=== PATIENT | female | born 1995 | race African-American/Black ===

== ENCOUNTER 2017-01-17 00:06 | Emergency (ER) | payer MEDICAID ==
[~2017-01-17] VITALS: Ht 165.1 cm; Wt 75.0 kg
[~2017-01-17 00:06] MED LIST: AUGM875T PO; IBUP800T23 PO; OFLO1SOL LEFT EAR; VENTAER INH
[2017-01-17 00:09] VITALS: BP 115/70; PULSE 105; RESP 16; TEMP 98.1; O2SAT 100
[2017-01-17] MEDS ORDERED: ONDANSETRON HCL 4 MG/2 ML VIAL IV PUSH ONE (01:30)
[2017-01-17 01:38] VITALS: BP 114/83; PULSE 95; RESP 17; O2SAT 98
[2017-01-17] MEDS ORDERED: SODIUM CHLOR 0.9% 1000 ML INJ 1,000 ML IV ONE (01:49)
--- NOTE | 2017-01-17 01:53 | PD ---
HPI Chief Complaint: GI Complaint Time Seen by Provider: 01:49 Travel History International Travel<30 days: No Contact w/Intl Traveler<30days: No Traveled to known affect area: No History of Present Illness HPI 22 year-old female presents to the emergency department by private transportation for complaint of several hours of nausea vomiting diarrhea and intermittent abdominal cramping. Patient states daughter has similar symptoms and she also thinks she may have consumed some poorly cooked macaroni and cheese. Patient states she ate around 4 PM and symptoms began around 6 or 7 PM. No hematemesis no coffee-ground emesis no melena hematochezia. No recent fever or chills. Patient denies any abdominal pain at this time. Patient denies other concerns or complaints. Current pain is 0/10 intensity PFSH Past Medical History Narrative Medical Asthma, dermatitis, ovarian cysts, child with seizure; no surgery; 3 para 3 AB 0; no tobacco use; nursing notes reviewed Asthma: Yes Diminished Hearing: No Headaches: Yes Immunizations Current: No Seizures: Yes ( CHILD) Tetanus Vaccination: < 5 Years Influenza Vaccination: No ?: Unknown Menopausal: No : 4 Para: 4 Ovarian Cysts: Yes Past Surgical History Surgical History: No Previous Surgery Social History Alcohol Use: No Tobacco Use: No Substance Use: No Allergies-Medications (Allergen,Severity, Reaction): Coded Allergies: Peanut Allergy (Verified Allergy, Severe, 01/17/17) Reported Meds & Prescriptions Reported Meds & Active Scripts Active Zofran Odt (Ondansetron Odt) 4 Mg Tab 4 Mg SL Q6HR PRN Reported Ventolin Hfa 18 GM Inh (Albuterol Sulfate) 90 Mcg/Act Aer 1 Puff INH Q4H PRN Review of Systems Except as stated in HPI: all other systems reviewed are Neg General / Constitutional: No: Fever, Chills HENT: No: Congestion Cardiovascular: No: Chest Pain or Discomfort Respiratory: No: Shortness of Breath Gastrointestinal: Positive: Nausea, Vomiting, Diarrhea, Abdominal Pain, No: Hematemesis, Hematochezia, Loss of Appetite Genitourinary: No: Urgency, Frequency, Dysuria, Flank Pain Musculoskeletal: No: Myalgias, Arthralgias Skin: No Rash Neurologic: No: Weakness Hematologic/Lymphatic: No: Lymph Node Enlargement Physical Exam Narrative GENERAL: Well-developed well-nourished female in no acute distress no respiratory distress SKIN: Warm and dry. HEAD: Normocephalic. EYES: No scleral icterus. No injection or drainage. NECK: Supple, trachea midline. No JVD or lymphadenopathy. CARDIOVASCULAR: Regular rate and rhythm without murmurs, gallops, or rubs. RESPIRATORY: Breath sounds equal bilaterally. No accessory muscle use. GASTROINTESTINAL: Abdomen soft, non-tender, nondistended. MUSCULOSKELETAL: No cyanosis, or edema. BACK: Nontender without obvious deformity. No CVA tenderness. Data Data Last Documented VS Vital Signs Date Time Temp Pulse Resp B/P Pulse Ox O2 Delivery O2 Flow Rate FiO2 01/17/17 01:38 95 17 114/83 98 Room Air 01/17/17 00:09 98.1 Orders Ondansetron Inj (Zofran Inj) (01/17/17 01:30) Complete Blood Count With Diff (01/17/17 01:49) Comprehensive Metabolic Panel (01/17/17 01:49) Lipase (01/17/17 01:49) Iv Access Insert/Monitor (01/17/17 01:49) Ecg Monitoring (01/17/17 01:49) Oximetry (01/17/17 01:49) Sodium Chlor 0.9% 1000 Ml Inj (Ns 1000 M (01/17/17 01:49) Sodium Chloride 0.9% Flush (Ns Flush) (01/17/17 02:00) Ed Urine Pregnancytest Poc (01/17/17 01:49) Labs Laboratory Tests Test 01/17/17 02:00 White Blood Count 9.9 TH/MM3 Red Blood Count 4.87 MIL/MM3 Hemoglobin 11.5 GM/DL Hematocrit 35.8 % Mean Corpuscular Volume 73.5 FL Mean Corpuscular Hemoglobin 23.7 PG Mean Corpuscular Hemoglobin 32.2 % Concent Red Cell Distribution Width 16.6 % Platelet Count 321 TH/MM3 Mean Platelet Volume 9.3 FL Neutrophils (%) (Auto) 71.5 % Lymphocytes (%) (Auto) 20.2 % Monocytes (%) (Auto) 6.8 % Eosinophils (%) (Auto) 1.3 % Basophils (%) (Auto) 0.2 % Neutrophils # (Auto) 7.1 TH/MM3 Lymphocytes # (Auto) 2.0 TH/MM3 Monocytes # (Auto) 0.7 TH/MM3 Eosinophils # (Auto) 0.1 TH/MM3 Basophils # (Auto) 0.0 TH/MM3 CBC Comment DIFF FINAL Differential Comment Sodium Level 140 MEQ/L Potassium Level 4.1 MEQ/L Chloride Level 106 MEQ/L Carbon Dioxide Level 25.0 MEQ/L Anion Gap 9 MEQ/L Blood Urea Nitrogen 10 MG/DL Creatinine 0.74 MG/DL Estimat Glomerular Filtration 119 ML/MIN Rate Random Glucose 104 MG/DL Calcium Level 9.2 MG/DL Total Bilirubin 0.2 MG/DL Aspartate Amino Transf 28 U/L (AST/SGOT) Alanine Aminotransferase 35 U/L (ALT/SGPT) Alkaline Phosphatase 147 U/L Total Protein 9.2 GM/DL Albumin 4.1 GM/DL Lipase 152 U/L [facility] Medical Decision Making Medical Screen Exam Complete: Yes Emergency Medical Condition: Yes Medical Record Reviewed: Yes Interpretation(s) poc hcg: negative Differential Diagnosis Vomiting, gastroenteritis, food borne illness, viral syndrome, electrolyte disturbance, dehydration, Narrative Course IV access obtained specimens collected and sent for resulting patient administered Zofran 4 mg IV and 1 L normal saline Diagnosis Primary Impression: Gastroenteritis Referrals: Primary Care Physician call for appointment Patient Instructions: General Instructions Additional Instructions: Increase fluid hydration Follow clear liquid diet for next 12-24 hours advance as tolerated bland/Juan diet and regular diet No work times one day Take Zofran as prescribed as needed for nausea and/or vomiting Follow-up with primary care provider Return to the emergency department for any concerns or change in condition Take Tylenol as needed for fever 100.4F or greater Med/Other Pt SpecificInfo: Prescription(s) given Scripts Ondansetron Odt (Zofran Odt)4 Mg Tab4 Mg SL Q6HR PRN (Nausea/Vomiting) #10 TAB Ref 0 Prov:Keyla Mccabe MD 01/17/17 Disposition: DISCHARGE HOME Condition: Stable Keyla Mccabe MD Jan 17, 2017 01:53
[2017-01-17] MEDS ORDERED: SODIUM CHLORIDE 0.9% FLUSH 10 ML FLUSH IVF PRN (02:00)
[2017-01-17 02:22] LABS: AUTOMATED NEUTROPHIL # 7.1 TH/MM3 (1.8-7.7); BASOPHIL % 0.2 % (0.0-2.0); EOSINOPHIL # 0.1 TH/MM3 (0-0.4); EOSINOPHIL % 1.3 % (0.0-4.0); HEMATOCRIT 35.8 % (35.0-46.0); HEMO FLAGS DIFF FINAL; LYMPH % 20.2 % (9.0-44.0); MEAN CELL VOLUME 73.5 FL (80.0-100.0); MEAN CORPUSCULAR HEMOGLOBIN 23.7 PG (27.0-34.0); MEAN CORPUSCULAR HGB CONC 32.2 % (32.0-36.0); MONO % 6.8 % (0.0-8.0); NEUT % 71.5 % (16.0-70.0); PLATELET COUNT 321 TH/MM3 (150-450); RED BLOOD COUNT 4.87 MIL/MM3 (4.00-5.30); RED CELL DISTRIBUTION WIDTH 16.6 % (11.6-17.2); WHITE BLOOD COUNT 9.9 TH/MM3 (4.0-11.0)
[2017-01-17 02:38] LABS: ALT (GPT) 35 U/L (10-53); AST (GOT) 28 U/L (15-37); BLOOD UREA NITROGEN 10 MG/DL (7-18); GLOMERULAR FILTRATION RATE 119 ML/MIN (>89)
[2017-01-17 02:40] LABS: ALKALINE PHOSPHATASE 147 U/L (45-117); TOTAL BILIRUBIN ADULT 0.2 MG/DL (0.2-1.0)
[2017-01-17] MEDS ORDERED: ZOFR4TAB3 SL (02:52)
[2017-01-17 02:56] LABS: ANION GAP 9 MEQ/L (5-15); CHLORIDE 106 MEQ/L (98-107); POTASSIUM 4.1 MEQ/L (3.5-5.1); SODIUM (NA) 140 MEQ/L (136-145)
[2017-01-17 03:50] VITALS: BP 104/64
== END 2017-01-17 04:06 | disposition home or self-care (01) ==
LOC: NEPC 00:06
DX: K52.9 Noninfective gastroenteritis and colitis, unspecified (principal); J45.909 Unspecified asthma, uncomplicated
CPT/HCPCS: 80053; 83690; 84703; 85025; 96374; 99284; J2405; J7030